=== PATIENT | female | born 1990 | race Caucasian/White ===

== ENCOUNTER → 2019-05-29 | Outpatient (CLI) | payer OTHER | END | disposition home or self-care (01) | LOC: LAB SHORT 10:50 → LAB 10:50 | PROVIDERS: Obstetrics & Gynecology | DX: Z34.01 Encounter for supervision of normal first pregnancy, first trimester (principal) | CPT/HCPCS: G0123 ==

== ENCOUNTER → 2019-11-06 | Outpatient (CLI) | payer OTHER ==
[~2019-11-06] MED LIST: FOLIVANE-OB CA1 EACH PO
== END | disposition home or self-care (01) ==
LOC: LAB SHORT 13:28 → LAB 13:28
DX: Z34.03 Encounter for supervision of normal first pregnancy, third trimester (principal)
CPT/HCPCS: 87081; 87653

== ENCOUNTER 2019-11-24 19:17 | Inpatient (IN) | payer OTHER ==
[~2019-11-24] VITALS: Ht 162.6 cm; Wt 71.8 kg
[2019-11-24] MEDS ORDERED: FOLIVANE-OB CA1 EACH PO (19:41)
[2019-11-24 22:15] LABS: BASOPHILS ABSOLUTE AUTO 0.04 K/mm3 (0.00-0.23); BASOPHILS PERCENT AUTO 0 % (0-2); EOSINOPHILS ABSOLUTE AUTO 0.03 K/mm3 (0.00-0.68); EOSINOPHILS PERCENT AUTO 0 % (0-6); Hematocrit 37.6 % (33.0-51.0); Hemoglobin 12.9 g/dL (11.5-16.0); IMMATURE GRAN ABSOLUTE AUTO 0.11 K/mm3 (0.00-0.10); IMMATURE GRAN PERCENT AUTO 1 % (0-1); LYMPHOCYTES ABSOLUTE AUTO 2.08 K/mm3 (0.84-5.20); LYMPHOCYTES PERCENT AUTO 15 % (21-46); MONOCYTES ABSOLUTE AUTO 0.96 K/mm3 (0.16-1.47); MONOCYTES PERCENT AUTO 7 % (4-13); Mean Corpuscular HGB 33.3 pg (26.0-34.0); Mean Corpuscular HGB Conc 34.3 g/dL (31.5-36.5); Mean Corpuscular Volume 97 fL (80-100); Mean Platelet Volume 11.7 fL (9.1-12.4); NEUTROPHILS ABSOLUTE AUTO 10.29 K/mm3 (1.96-9.15); NEUTROPHILS PERCENT AUTO 76 % (41-73); Platelet Count 202 K/mm3 (150-400); RDW Coefficient Variation 12.1 % (11.7-14.2); Red Blood Cell Count 3.87 M/mm3 (3.80-5.20); White Blood Cell Count 13.51 K/mm3 (4.00-11.30)
--- NOTE | 2019-11-26 13:34 | NUR ---
ASSIST BABY SLEEPING IN [place]. VERBAL EDUCATION WITH MOM AND FOB
--- NOTE | 2019-11-26 13:51 | NUR ---
PT DISCHARGED TO HOME. PPFU APPOINTMENTS MADE. DISCHARGE INSTRUCTIONS GIVEN. NO QUESTIONS OR CONCERNS AT THIS TIME.
== END 2019-11-26 13:40 | disposition home or self-care (01) | DRG 768 ==
LOC: BC 19:17 → OBS 19:17 → BC 21:17
PROVIDERS: ADMIT Advanced Practice Midwife
PROC: 10E0XZZ Delivery of Products of Conception, External Approach (ICD-10-PCS; principal; 2019-11-25)
PROC: 0UQK7ZZ Repair Hymen, Via Natural or Artificial Opening (ICD-10-PCS; 2019-11-25)
PROC: 0UQMXZZ Repair Vulva, External Approach (ICD-10-PCS; 2019-11-25)
DX: O99.824 Streptococcus B carrier state complicating childbirth (principal); Z37.0 Single live birth; O70.0 First degree perineal laceration during delivery; Z3A.39 39 weeks gestation of pregnancy; O69.81X0 Labor and delivery complicated by cord around neck, without compression, not applicable or unspecified
CPT/HCPCS: 36415; 59025; 85025; 86850; 86900; 86901; J0290; J2405; J2590; J7120